=== PATIENT | male | born 1995 | race Caucasian/White ===

== ENCOUNTER 2020-04-17 07:07 | Emergency (ER) | payer SELFPAY ==
[~2020-04-17] VITALS: Ht 180.3 cm; Wt 106.2 kg
[2020-04-17 07:12] VITALS: BP 132/82
--- NOTE | 2020-04-17 07:18 | NUR ---
DR. GARCIA EVALUATING PT AT BEDSIDE
--- NOTE | 2020-04-17 07:19 | NUR ---
PT AMB TO BED 11
[2020-04-17] MEDS ORDERED: LIDOCAINE 2% 1000 MG/50 ML VIAL INJ ONE (07:25)
[2020-04-17] MEDS ORDERED: IBUPROFEN 600 MG TAB PO ONE (07:25)
--- NOTE | 2020-04-17 07:25 | NUR ---
24/M c/o pain & bleeding to right middle finger s/p fence falling on right hand approx 30 min [employer]. Slow active bleeding. Nail raised up from nailbed. Unknown tetanus vaccination status. Pain 01/22. PMH: denies
--- NOTE | 2020-04-17 07:53 | NUR ---
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
--- NOTE | 2020-04-17 07:53 | NUR ---
DR. GARCIA AT BEDSIDE
--- NOTE | 2020-04-17 08:06 | NUR ---
CALLED PHARMACY TO VERIFY THE ORDERED TDAP
--- NOTE | 2020-04-17 08:18 | NUR ---
DR. GARCIA AT BEDSIDE
[2020-04-17] MEDS ORDERED: BACITRACIN OINT 500 UNITS/GM PKT TP ONE ×2 (08:48→08:50)
--- NOTE | 2020-04-17 09:01 | NUR ---
applied finger splint to left third digit without any issues, applied dressing to left third digit without any issues
--- NOTE | 2020-04-17 09:08 | NUR ---
DR. GARCIA SPEAKING WITH PATIENT AT BEDSIDE
--- NOTE | 2020-04-17 09:12 | NUR ---
Patient discharged with v/s stable. Written and verbal after care instructions given and explained. Patient alert, oriented and verbalized understanding of instructions. Ambulatory with steady gait. All questions addressed prior to discharge. ID band removed. Patient advised to follow up with PMD. INSTRUCTED PT TO RETURN IN 4-5 DAYS FOR WOUND RE-EVALUATION AND POSSIBLE SUTURE REMOVAL. Rx of BACITRACIN given. Patient educated on indication of medication including possible reaction and side effects. INSTRUCTED PT TO REMOVE SPLINT IN 24 HOURS, APPLY BACITRACIN BID AND REPLACE SPLINT, DO NOT BEND THE FINGER. Opportunity to ask questions provided and answered.
[2020-04-17 09:13] VITALS: BP 128/76
== END 2020-04-17 09:12 | disposition home or self-care (01) ==
LOC: MED 07:07
DX: S61.212A Laceration without foreign body of right middle finger without damage to nail, initial encounter (principal); W45.8XXA Other foreign body or object entering through skin, initial encounter; Y93.89 Activity, other specified; Y92.89 Other specified places as the place of occurrence of the external cause; Y99.8 Other external cause status
CPT/HCPCS: 12001; 73130; 90471; 90715; 99283; J2001

== ENCOUNTER 2020-04-22 18:06 | Emergency (ER) | payer OTHER ==
[~2020-04-22] VITALS: Ht 180.3 cm; Wt 103.4 kg
[2020-04-22 18:12] VITALS: BP 118/70
[2020-04-22 18:43] VITALS: BP 118/70
== END 2020-04-22 18:43 | disposition home or self-care (01) ==
LOC: MED 18:06
DX: S61.212D Laceration without foreign body of right middle finger without damage to nail, subsequent encounter (principal); Z48.02 Encounter for removal of sutures; X58.XXXD Exposure to other specified factors, subsequent encounter
CPT/HCPCS: 99281